=== PATIENT | male | born 1985 | race Caucasian/White ===

== ENCOUNTER 2017-04-01 13:04 | Outpatient (CLI) | payer OTHER ==
[2017-04-01] MEDS ORDERED: ALBUTEROL NEB 2.5 MG/3 ML INH ONE (14:30)
== END 2017-04-01 13:05 | disposition home or self-care (01) ==
LOC: RT 13:04
PROVIDERS: ATTEND Registered Nurse Diabetes Educator
DX: R06.00 Dyspnea, unspecified (principal)
CPT/HCPCS: 94060; J7613